=== PATIENT | male | born 1955 | race Caucasian/White ===

== ENCOUNTER → 2023-06-11 10:17 | Outpatient (BNVA) | payer MEDICARE, SELFPAY | PROVIDERS: Family Provider Family Medicine; PCP Family Medicine; Referring Provider Family Medicine; Visit Provider Surgery | DX: K21.9 Gastro-esophageal reflux disease without esophagitis (principal); Z87.11 Personal history of peptic ulcer disease; Z86.010 Personal history of colon polyps; K92.1 Melena | CPT/HCPCS: 99204 ==

== ENCOUNTER → 2023-07-02 09:35 | Outpatient (BNVA) | payer MEDICARE, SELFPAY | PROVIDERS: Family Provider Family Medicine; PCP Family Medicine; Visit Provider Family Medicine | DX: R79.89 Other specified abnormal findings of blood chemistry (principal); I10 Essential (primary) hypertension; Z91.018 Allergy to other foods; Z12.11 Encounter for screening for malignant neoplasm of colon; K21.9 Gastro-esophageal reflux disease without esophagitis; E83.42 Hypomagnesemia; Z12.5 Encounter for screening for malignant neoplasm of prostate | CPT/HCPCS: 80053; 80061; 82607; 83735; 84443; 85025; 86003; 86008; G0103 ==

== ENCOUNTER 2023-07-12 10:49 | Day surgery (SDC) | payer MEDICARE, SELFPAY ==
[2023-07-12 11:06] VITALS: BP 144/95; PULSE 70; RESP 18; TEMP 36.2; O2SAT 97; BMI 39.3
[2023-07-12] MEDS: sodium chloride 0.9% 1,000 ML 30 ML IV (11:23)
--- NOTE | 2023-07-12 12:13 | PM.HP ---
Providers/Chief Complaint Primary Care Provider: Octavio Sparks DO Chief Complaint: K21.9, Z12.11 History of Present Illness Valdemar Loera is a 68 year old male Review of Systems General: Reports: 10 or more systems reviewed and unremarkable except in HPI and below Medications/Allergies Home Medications Medication Instructions Recorded Confirmed Last Taken Type amlodipine 10 mg-benazepril 20 mg 1 cap PO DAILY 06/04/23 07/10/23 07/11/23 History capsule sucralfate 1 gram tablet (Carafate) 1 g PO BID PRN GERD #60 tabs 06/04/23 07/10/23 07/11/23 Rx alprazolam 1 mg tablet 1 mg PO DAILY #90 tabs 06/11/23 07/10/23 07/11/23 Rx pantoprazole 40 mg tablet,delayed 40 mg PO BID 6 weeks #84 tabs 06/11/23 07/10/23 07/11/23 Rx release (Protonix) Allergies Allergy/AdvReac Type Severity Reaction Status Date / Time Alpha-Gal Allergy ALGY-Anaphy Verified 07/12/23 10:54 (Nureotmib-Zbjhx-6,3-Gala laxis PFSH Acute PFSH: Medical History History of peptic ulcer disease Surgical History Hx of colonoscopy with polypectomy last episode 2013 History of esophagogastroduodenoscopy (EGD) Hx of neck surgery fusion Hx of hand surgery right Social History Smoking and tobacco/nicotine status: never used tobacco/nicotine Second hand smoke exposure: No Alcohol intake: never Substance/Drug Use: current Other substance/drug use details: Medical Do you think of yourself as: Straight/Heterosexual Current gender identity: Male Vitals/I&O/Wt Last Vital Signs Temp 97.1 F L 07/12/23 11:06 Pulse 70 07/12/23 11:06 Resp 18 07/12/23 11:06 BP 144/95 07/12/23 11:06 Pulse Ox 97 07/12/23 11:06 O2 Del Method Room Air 07/12/23 11:06 Weight last 48 hrs Weight 290 lb A&P Assessment and plan (1) GERD (gastroesophageal reflux disease): Qualifiers: Esophagitis presence: without esophagitis Qualified Code(s): K21.9 - Gastro-esophageal reflux disease without esophagitis (2) Screening for malignant neoplasm of colon: (3) History of colon polyps: (4) Melena: (5) History of peptic ulcer disease: Plan EGD and colonoscopy Attestations Medical Necessity Statement*: Home Coding Level of Care Code Acute Code for Chg Fwd Diagnoses Gastroesophageal reflux disease without esophagitis K21.9 Esophagitis presence: without esophagitis Screening for malignant neoplasm of colon Z12.11 History of colon polyps Z86.010 Melena K92.1 History of peptic ulcer disease Z87.11
--- NOTE | 2023-07-12 12:15 | ANES.PREANE2 ---
Pre-Anesthetic Assessment Height/Weight: Height 1.83 m Weight 131.542 kg Temp Pulse Resp BP Pulse Ox O2 Del Method 97.1 F L 70 18 144/95 97 Room Air 07/12/23 11:06 07/12/23 11:06 07/12/23 11:06 07/12/23 11:06 07/12/23 11:06 07/12/23 11:06 Preop Diagnosis: screening Operation Date: 07/12/23 11:45 Proposed Procedures p EGD(Not Applicable) - Patrick Monzon DO s Colonoscopy(Not Applicable) - Patrick Monzon DO Familial anesthetic complications: none Was Beta Esperanza taken within 24 hours: N/A Was Clonidine taken within 24 hours: N/A Social No alcohol and No tobacco daily MJ Exam alert and oriented x 3 Airway Submandibular: within normal limits Cervical ROM: within normal limits Mallampati: Class III Dentition: full (poor dentition) Pulmonary None reported CV/HEM Hypertension None reported Hepatic None reported GI Gastroesophageal Reflux Disease Metabolic Hyperlipidemia and Morbid Obesity [facility] [place] None reported Neuropsych None reported Anesthetic Plan ASA status: 2 Anesthesia: Anesthesia Evaluation, General and MAC Risk of > 500 ml blood loss (7ml/kg in children): No Medications/Allergies Home Medications Medication Instructions Recorded Confirmed Last Taken Type amlodipine 10 mg-benazepril 20 mg 1 cap PO DAILY 06/04/23 07/10/23 07/11/23 History capsule sucralfate 1 gram tablet (Carafate) 1 g PO BID PRN GERD #60 tabs 06/04/23 07/10/23 07/11/23 Rx alprazolam 1 mg tablet 1 mg PO DAILY #90 tabs 06/11/23 07/10/23 07/11/23 Rx pantoprazole 40 mg tablet,delayed 40 mg PO BID 6 weeks #84 tabs 06/11/23 07/10/23 07/11/23 Rx release (Protonix) Allergies Allergy/AdvReac Type Severity Reaction Status Date / Time Alpha-Gal Allergy ALGY-Anaphy Verified 07/12/23 10:54 (Tvsgsuzvt-Pnflh-5,3-Gala laxis Current Medications Generic Name Dose Route Start Last Admin Trade Name Freq PRN Reason Stop Dose Admin Sodium Chloride 1,000 mls @ 30 mls/hr 07/12/23 11:00 07/12/23 11:23 Sodium Chloride 0.9% IV 07/13/23 10:59 30 mls/hr .Q24H MAXX Administration PFSH Anesthesia Medical History History of peptic ulcer disease Surgical History Hx of colonoscopy with polypectomy last episode 2013 History of esophagogastroduodenoscopy (EGD) Hx of neck surgery fusion Hx of hand surgery right Social History Smoking and tobacco/nicotine status: never used tobacco/nicotine Second hand smoke exposure: No Alcohol intake: never Substance/Drug Use: current Other substance/drug use details: Medical Do you think of yourself as: Straight/Heterosexual Current gender identity: Male Data Anesthesia Cardiac Studies: No Data to Display
[2023-07-12 12:46] VITALS: BP 100/63; PULSE 61; RESP 18; TEMP 36.1; O2SAT 91
--- NOTE | 2023-07-12 12:49 | ANE.PACU2 ---
Inpatient post-anesthesia follow up: Airway intact: Yes Vital signs: Temperature 97.1 F Pulse Rate 70 Respiratory Rate 18 Blood Pressure 144/95 Pulse Oximetry 97 Oxygen Delivery Me thod Room Air Oxygen Flow Rate Fraction of Inspir ed Oxygen Hydration adequate: Yes Nausea and vomiting: No Pain level: 1 Mental status: Baseline
[2023-07-12] MEDS: ondansetron 2 mg/ML SDV 2 mL 4 MG IVP (12:55)
--- NOTE | 2023-07-12 13:00 | XR_ITS ---
WS: [id number] Acute abdomen series, portable, 07/12/2023 Clinical Data: POST COLONOSCOPY STAT!!! Comparison: None. Findings: In the chest there are no nodules, masses or effusions. The heart is normal. The pulmonary vascularity is not increased. The aortic arch is minimally tortuous as is the descending thoracic aor ta. The patient has had an anterior cervical disc fusion. No free air is seen beneath the diaphragms. No abnormal intra-abdominal masses or calcifications are seen. There is a large amount of air within the colon and small bowel consistent with the recent colo noscopy. Impression: Negative acute abdomen series.
[2023-07-12 13:13] VITALS: BP 149/101; PULSE 63; RESP 16; O2SAT 100
--- NOTE | 2023-07-12 13:24 | PC.NURSE ---
Per doctor's order, inserted rectal tube, release of air was audible.
[2023-07-12 13:25] VITALS: BP 144/89; PULSE 68; RESP 20; O2SAT 83
[2023-07-12 13:27] VITALS: O2SAT 95
[2023-07-12 13:36] VITALS: BP 129/91; PULSE 66; RESP 18; O2SAT 97
--- NOTE | 2023-07-12 14:56 | PC.NURSE ---
After abdominal series XRay report showed no free-air and gas relief via rectal tube insertion Dr. Monzon ok'd pt discharge. However pt chose to stay additional time due to persistent abdominal pain. After pt's numerous trips to the toilet and my assisting him in ambulating through the department pt passed a considerable amount of gas and stated his pain had decreased. Advised pt of discharge instructions, including to continue ambulation to facilitate passing gas. Pt voiced understanding and appreciation.
== END 2023-07-12 15:00 | disposition home or self-care (01) ==
PROVIDERS: Family Provider Family Medicine; PCP Family Medicine; Visit Provider Surgery
PROC: 0DJ08ZZ Inspection of Upper Intestinal Tract, Via Natural or Artificial Opening Endoscopic (ICD-10-PCS; CPT 43235; principal; 2023-07-12 11:45)
PROC: 0DJD8ZZ Inspection of Lower Intestinal Tract, Via Natural or Artificial Opening Endoscopic (ICD-10-PCS; CPT 45378; 2023-07-12 11:45)
DX: K92.1 Melena (principal); K21.9 Gastro-esophageal reflux disease without esophagitis; K57.30 Diverticulosis of large intestine without perforation or abscess without bleeding; K64.8 Other hemorrhoids; K63.5 Polyp of colon; D12.8 Benign neoplasm of rectum; Z87.11 Personal history of peptic ulcer disease; Z86.010 Personal history of colon polyps; I10 Essential (primary) hypertension; E78.5 Hyperlipidemia, unspecified; E66.01 Morbid (severe) obesity due to excess calories; Z68.39 Body mass index [BMI] 39.0-39.9, adult
CPT/HCPCS: 43239; 45385; 74022; 88305; 88342; J2405; J2704; J7030

== ENCOUNTER → 2023-07-26 10:15 | Outpatient (BNVA) | payer MEDICARE, SELFPAY | PROVIDERS: Family Provider Family Medicine; PCP Family Medicine; Visit Provider Surgery | DX: Z09 Encounter for follow-up examination after completed treatment for conditions other than malignant neoplasm (principal); K21.9 Gastro-esophageal reflux disease without esophagitis; K63.5 Polyp of colon | CPT/HCPCS: 99214 ==

== ENCOUNTER → 2024-06-12 09:00 | Outpatient (BNVA) | payer MEDICARE, SELFPAY | PROVIDERS: Family Provider Family Medicine; PCP Family Medicine; Visit Provider Family Medicine | DX: I10 Essential (primary) hypertension (principal); Z91.018 Allergy to other foods; K21.9 Gastro-esophageal reflux disease without esophagitis; G47.00 Insomnia, unspecified; Z12.5 Encounter for screening for malignant neoplasm of prostate; E55.9 Vitamin D deficiency, unspecified | CPT/HCPCS: 80053; 80061; 82306; 84443; 85025; 86003; 86008; G0103 ==